=== PATIENT | female | born 1995 | race Caucasian/White ===

== ENCOUNTER 2024-10-24 17:24 | Emergency (ER) | payer OTHER, SELFPAY ==
--- NOTE | 2024-10-24 17:39 | ED.GENADULT ---
HPI - General Adult General Chief complaint: Upper Respiratory Infection Stated complaint: sore throat Time Seen by Provider: 10/24/24 17:39 Source: patient Mode of arrival: ambulatory Limitations: no limitations History of Present Illness HPI narrative: 28-year-old female patient presents to the [facility] with complaints of sore throat for the past 2 weeks. Denies fevers, body aches or chills. Patient states she has been cut taking Tylenol and ibuprofen but does not seem to be helping. Denies any ear pain, runny nose or congestion. Denies fevers body aches or chills. Denies any chest pain or coughing. Patient states she has been using a him humidifier by her bed at night. Related Data Home Medications Medication Instructions Recorded Confirmed levothyroxine 88 mcg capsule 88 mcg PO DAILY 06/09/24 10/24/24 Allergies Allergy/AdvReac Type Severity Reaction Status Date / Time No Known Allergies Allergy Verified 10/24/24 17:45 Review of Systems Review of Systems: CONSTITUTIONAL: Denies fever, chills, or sweats. EYES: Denies visual changes, redness, or discharge. ENT: Denies rhinorrhea, congestion, Positive sore throat, denies otalgia. CARDIOVASCULAR: Denies chest pain, palpitations, or edema. RESPIRATORY: Denies cough or dyspnea. GASTROINTESTINAL: Denies abdominal pain, nausea, vomiting, or diarrhea. GENITOURINARY: Denies dysuria or hematuria. SKIN: Denies rash or itching. MUSCULOSKELETAL: Denies back pain, joint pain, or myalgia. NEUROLOGIC: Denies headache, numbness, or weakness. PSYCHIATRIC: Denies anxiety or depression. [facility] Past Medical History Medical History Depression Generalized anxiety disorder with panic attacks Saray's disease Hypothyroid Family History Family History Mother Depression Anxiety Grandparent Thyroid disease Lung cancer Depression Anxiety Grandparent Thyroid disease Grandparent Stomach cancer Social History Social History Smoking status: Never smoker Alcohol intake: current Alcohol use details: socially occasionally Substance use: never Do You Feel Safe in your Home?: Yes Lack of Transportation: No Lack of Food: Never True Current Housing: I Have Housing Concerned About Future Housing: No Difficulty Paying Gas/Electric Bills: No Difficulty Paying for Meds: No Currently Unemployed: No Education: High School Diploma/GED Difficulty w/ Childcare or Family Care: No Living arrangements: with family Comments At the time of my signature I agree with nursing past medical history, surgical, social, and family history. There is no relevant family history pertinent to the presenting complaint. Exam Narrative: GENERAL: Well-appearing, well-nourished, and in no acute distress. HEAD: Normocephalic, atraumatic. EYES: PERRLA and EOMI. ENT: Nares clear, no rhinorrhea or epistaxis. Mucous membranes moist. posterior pharynx with slight postnasal drip noted. Bilateral TMs are clear no erythema or foreign bodies the canal NECK: Supple. No lymphadenopathy CHEST: Clear to auscultation. No respiratory distress. HEART: Regular rate and rhythm. No murmur heard. Normal peripheral pulses. ABDOMEN: Soft, nontender, nondistended, normal active bowel sounds. EXTREMITIES: Normal range of motion. No edema. SKIN: Warm, dry, no rash. NEURO: No focal deficits. Alert and oriented x3. Course Course Level of Care: Express Care Visit Vital Signs Vital signs: Vital Signs Temperature 37.3 C 10/24/24 17:40 Pulse Rate 66 10/24/24 17:40 Respiratory Rate 14 10/24/24 17:40 Blood Pressure 114/60 10/24/24 17:40 Pulse Oximetry 99 10/24/24 17:40 Oxygen Delivery Room Air 10/24/24 17:40 Temperature 37.3 C 10/24/24 17:45 Pulse Rate 66 10/24/24 17:45 Respiratory Rate 14 10/24/24 17:45 Blood Pressure 114/60 10/24/24 17:45 Pulse Oximetry 99 10/24/24 17:45 Oxygen Delivery Room Air 10/24/24 17:45 Vital signs reviewed. Medical Decision Making MDM Narrative Medical decision making narrative: plan care for patients to swab her for strep today. I will reassess her once this has resulted. Differential Diagnosis Differential Diagnosis: Differential diagnosis: Allergic rhinitis, chronic sinusitis, tonsillitis, acute sinusitis, infectious mononucleosis, seasonal influenza, pertussis, diphtheria, meningococcal disease, viral syndrome, viral bronchitis, RSV, COVID-19 Vital Signs Vital Signs: Vital Signs Temperature 37.3 C 10/24/24 17:40 Pulse Rate 66 10/24/24 17:40 Respiratory Rate 14 10/24/24 17:40 Blood Pressure 114/60 10/24/24 17:40 Pulse Oximetry 99 10/24/24 17:40 Oxygen Delivery Room Air 10/24/24 17:40 Temperature 37.3 C 10/24/24 17:45 Pulse Rate 66 10/24/24 17:45 Respiratory Rate 14 10/24/24 17:45 Blood Pressure 114/60 10/24/24 17:45 Pulse Oximetry 99 10/24/24 17:45 Oxygen Delivery Room Air 10/24/24 17:45 Critical Care Time Critical Care Time Critical Care Time: No Discharge Plan Discharge Clinical Impression: Pharyngitis Patient Disposition: Home, Self-Care Condition: Stable Instructions: Antibiotic Form, Pharyngitis (ED) Additional Instructions: A sore throat can be caused by an infection from a virus or bacteria. Sore throat can also be caused by postnasal drip, allergies, and exposure to smoke. A viral sore throat last 3-4 days and cannot be treated with antibiotics. One type of sore throat virus, infectious mononucleosis ( mono ), can last for 3 weeks and older children. The germs that cause these infections are contagious and can be spread by coughing or sharing drinks or utensils. Contact her primary care physician or go to the ER if: Your trouble breathing or swallowing because her throat is swollen or sore. You're drooling because it hurts too much to swallow. You're painful lump in your throat go away after 5 days. You're fever is higher than 10 2??F or last longer than 3 days. You have confusion. You are blood in your throat. You're sore throat should feel better within 3-5 days without treatment if it is caused by virus. You may need the following: Ibuprofen or Tylenol as needed for pain or fever Gargle warm salt water Drink more liquids, cold or warm drinks may help soothe her throat. Humidifier in your room. Cough drops, ice, soft foods, or popsicles may help soothe her throat. A spoonful of honey could help with inflammation and soothe her throat. Wash her hands with soap and water, do not share food or drinks, throat away her toothbrush after 72 hours. Prescriptions: No Action levothyroxine 88 mcg capsule 88 mcg PO DAILY escitalopram oxalate 20 mg tablet 20 mg PO DAILY Qty: 90 3RF bupropion HCl 300 mg tablet extended release 24 hr 300 mg PO QAM Qty: 90 3RF Follow-up/Referrals: Alexandra Holden NP [Primary Care Provider] - Time of Disposition: 18:03
[2024-10-24 17:40] VITALS: BP 114/60; PULSE 66; RESP 14; TEMP 37.3; O2SAT 99
[2024-10-24 17:45] VITALS: BP 114/60; PULSE 66; RESP 14; TEMP 37.3; O2SAT 99
[2024-10-24 18:07] LABS: EDSTREPNEGPOS1 Negative (Negative)
== END 2024-10-24 18:07 | disposition home or self-care (01) ==
PROVIDERS: Emergency Provider Nurse Practitioner Family; PCP Nurse Practitioner Family
DX: J02.9 Acute pharyngitis, unspecified (principal); E06.3 Autoimmune thyroiditis; E03.9 Hypothyroidism, unspecified
CPT/HCPCS: 87081; 87880; 99213; G0463